=== PATIENT | female | born 1970 | race Caucasian/White ===

== ENCOUNTER 2019-07-04 10:11 | Day surgery (SDC) | payer BC ==
[2019-07-01 13:12] VITALS: BMI 20.3
[~2019-07-04 10:11] MED LIST: Ondansetron PF 4 MG/2 ML Vial ONE; PROPOFOL 200 MG/20 ML VIAL ONE
[2019-07-04] MEDS ORDERED: Sodium Chloride 0.9% 100 ML ONE (10:55)
[2019-07-04] MEDS ORDERED: Ketorolac Tromethamine 30 MG/ML VIAL ONE (10:55)
[2019-07-04] MEDS ORDERED: cefOXitin 2 GM VIAL ONE (10:55)
[2019-07-04 10:59] LABS: #Lymphocytes 2.1 thou/uL (1.20-3.40); #Monocytes 0.6 thou/uL (0.11-0.59); #Neutrophils 3.5 thou/uL (1.40-6.50); %Basophils 0.3 % (0.0-1.0); %Eosinophils 0.4 % (0.0-10.0); %Lymphocytes 34.2 % (21.0-51.0); %Monocytes 9.1 % (0.0-10.0); %Neutrophils 56.1 % (42.0-75.0); Hemoglobin 14.8 g/dL (12.0-16.0); Mean Corpuscular HGB CONC 32.9 g/dL (32.0-36.0); Mean Corpuscular Hemoglobin 31.2 pg (27.0-31.0); Mean Corpuscular Volume 94.9 fL (78.0-98.0); Mean Platelet Volume 7.4 fL (7.4-10.4); Platelet Count 226 thou/uL (130-400); RBC Distribution Width 11.4 % (11.5-14.5); Red Blood Cell (RBC) Count 4.74 mill/uL (4.20-5.40); White Blood Cell (WBC) Count 6.3 thou/uL (4.8-10.8)
[2019-07-04 11:27] LABS: Anion Gap 14 mmol/L (10-20); BUN (Urea Nitrogen) 9 mg/dL (9.8-20.1); Calc. Creatinine Clearance 90 mL/min (70-130); Calcium 9.2 mg/dL (7.8-10.44); Carbon Dioxide 26 mmol/L (22-29); Chloride 102 mmol/L (98-107); Estimated GFR-MDRD 87; Glucose 103 mg/dL (70-105); Potassium 4.4 mmol/L (3.5-5.1); Sodium 138 mmol/L (136-145)
[2019-07-04] MEDS ORDERED: Fentanyl 100 MCG/2 ML VIAL ONE (12:00)
[2019-07-04] MEDS ORDERED: Lidocaine 1% w/Epinephrine 1:100K 20 ML VIAL ONE (12:07)
[2019-07-04] MEDS ORDERED: Bupivacaine 0.25% HCL 30 ML VIAL ONE (12:07)
[2019-07-04] MEDS ORDERED: HYDROcodone/Acetaminophen 5/325 mg Tablet ONE (13:47)
--- NOTE | 2019-07-04 16:40 | OP ---
DATE OF PROCEDURE: 07/04/2019 PREOPERATIVE DIAGNOSIS: Dominant perianal skin lesion at approximately the 8 o'clock radian, posterior anal fissure. POSTOPERATIVE DIAGNOSIS: Dominant perianal skin lesion at approximately the 8 o'clock radian, posterior anal fissure with additional findings of 3 other small perianal skin lesions. PROCEDURES PERFORMED: Excision of 4 perianal skin lesions, the largest of which was at the 8 o'clock radian with other lesions at the 10 o'clock radian, the 1 o'clock radian, and the 2:30 radian, left lateral internal sphincterotomy, posterior anal fissurectomy. ANESTHESIA: General with laryngeal mask airway. INDICATIONS: The patient is a 49-year-old female. She presents with severe anorectal pain. She has failed a course of conservative management with nitroglycerin. She is taken to the operating room at this time for surgical treatment. She is additionally noted to have a dominant skin lesion. There appears to be a pedunculated lesion at about the 8 o'clock to 9 o'clock radian and excision of this was recommended. DESCRIPTION OF OPERATION: Informed consent was obtained. The patient was taken to the operating room, where general anesthesia was obtained with the patient in supine position. She was then placed in dorsal lithotomy position. Perianal area was prepped with Betadine and draped in sterile fashion. Attention was turned first to the skin lesions. I was initially planning on excising a single lesion at about the 8 o'clock to 9 o'clock radian. Upon further examination, there were 3 other smaller lesions. Local anesthetic was infiltrated at each site. The lesion was excised and passed off the field to Pathology. Hemostasis was obtained with electrocautery and all smoke was aspirated with suctioning device. Attention was then turned to the sphincterotomy. The bivalve speculum was used to expose the left lateral internal sphincter. Additional local anesthetic was infiltrated. Cutaneous incision was created over this. The sphincter was dissected and divided with electrocautery. The defect was then closed with a running locking suture of 3-0 Vicryl. Attention was turned to the posterior fissure. There was a dominant sentinel pile associated with this. I excised the edges of the fissure as well as the sentinel pile. Hemostasis was again obtained with electrocautery. The freshened edges of the fissure were closed with running locking suture of 3-0 Vicryl. An additional [id number] suture of 3-0 Vicryl was placed near the apex due to continued oozing. An Avitene material was placed within the anal canal. Dry gauze and mesh pants placed externally. There were no complications. The patient tolerated the procedure well, was taken to the recovery room in stable condition. Job ID: [id number]
== END 2019-07-04 15:45 | disposition home or self-care (01) ==
LOC: SDC 10:11
PROVIDERS: ATTEND Specialist
PROC: 0D8R0ZZ Division of Anal Sphincter, Open Approach (ICD-10-PCS; principal; 2019-07-04)
DX: K60.2 Anal fissure, unspecified (principal); A63.0 Anogenital (venereal) warts; E11.9 Type 2 diabetes mellitus without complications; F41.9 Anxiety disorder, unspecified; F17.210 Nicotine dependence, cigarettes, uncomplicated; Z79.4 Long term (current) use of insulin; Z79.899 Other long term (current) drug therapy; Z88.0 Allergy status to penicillin
CPT/HCPCS: 36415; 80048; 85025; 88305; J0131; J0694; J1885; J2405; J2704; J3010; J3490; S0020

== ENCOUNTER 2021-05-07 07:50 | Outpatient (CLI) | payer BC | END 2021-05-07 07:51 | disposition home or self-care (01) | LOC: BICCT 07:50 | PROVIDERS: ATTEND Physician Assistant Medical | DX: R59.0 Localized enlarged lymph nodes (principal); R05 Cough; R63.4 Abnormal weight loss; Z85.07 Personal history of malignant neoplasm of pancreas; R53.83 Other fatigue | CPT/HCPCS: 71260; 74177 ==

== ENCOUNTER 2021-05-07 13:26 | Outpatient (CLI) | payer BC ==
[2021-05-07 14:24] LABS: Hemoglobin 13.1 g/dL (12.0-15.5); Mean Corpuscular HGB CONC 33.1 g/dL (32.0-36.0); Mean Corpuscular Hemoglobin 30.4 pg (27.0-33.0); Mean Corpuscular Volume 91.9 fl (81.6-98.3); Mean Platelet Volume 10.3 fl (7.4-10.4); Platelet Count 214 10x3/uL (150-450); RBC Distribution Width 11.9 % (11.5-14.5); Red Blood Cell (RBC) Count 4.31 10x6/uL (3.90-5.03); White Blood Cell (WBC) Count 7.8 10x3/uL (3.5-10.5)
[2021-05-07 14:37] LABS: Anion Gap 15 mmol/L (10-20); BUN (Urea Nitrogen) Less than 4 mg/dL (9.8-20.1); Calc. Creatinine Clearance 0 mL/min (70-130); Calcium 9.1 mg/dL (7.8-10.44); Carbon Dioxide 21 mmol/L (22-29); Chloride 105 mmol/L (98-107); Glucose 100 mg/dL (70-105); Potassium 4.5 mmol/L (3.5-5.1); Sodium 136 mmol/L (136-145)
[2021-05-08 11:50] LABS: SARS-CoV-2 PCR by NAA Not Detected (NotDetected)
== END 2021-05-07 13:27 | disposition home or self-care (01) ==
LOC: LABBT 13:26
PROVIDERS: ATTEND Thoracic Surgery (Cardiothoracic Vascular Surgery)
DX: Z01.812 Encounter for preprocedural laboratory examination (principal); R91.8 Other nonspecific abnormal finding of lung field; Z20.822 Contact with and (suspected) exposure to COVID-19; R59.0 Localized enlarged lymph nodes; R05 Cough; R63.4 Abnormal weight loss; Z85.07 Personal history of malignant neoplasm of pancreas; R53.83 Other fatigue
CPT/HCPCS: 71260; 74177; 80048; 85027; U0003; U0005

== ENCOUNTER 2021-05-09 05:43 | Day surgery (SDC) | payer BC ==
[2021-05-08 11:51] VITALS: BMI 21.6
[2021-05-09] MEDS ORDERED: Clindamycin/D5W 900 mg/50 ml Premix Bag ONE (06:04)
[2021-05-09] MEDS ORDERED: Bupivacaine PF 0.5% 30 ML VIAL ONE (06:25)
[2021-05-09] MEDS ORDERED: EPINEPHrine 1 MG/ML AMP ONE (06:25)
[2021-05-09] MEDS ORDERED: Fentanyl 100 MCG/2 ML VIAL ONE (07:27)
[2021-05-09] MEDS ORDERED: ePHEDrine 50 MG/ML VIAL ONE (07:34)
[2021-05-09] MEDS ORDERED: Ondansetron PF 4 MG/2 ML Vial ONE (07:34)
[2021-05-09] MEDS ORDERED: PROPOFOL 200 MG/20 ML VIAL ONE (07:34)
== END 2021-05-09 09:50 | disposition home or self-care (01) ==
LOC: SDC 05:43
PROVIDERS: ATTEND Thoracic Surgery (Cardiothoracic Vascular Surgery)
PROC: 07B20ZX Excision of Left Neck Lymphatic, Open Approach, Diagnostic (ICD-10-PCS; principal; 2021-05-09)
DX: C7A.1 Malignant poorly differentiated neuroendocrine tumors (principal); E11.9 Type 2 diabetes mellitus without complications; F17.210 Nicotine dependence, cigarettes, uncomplicated; Z79.4 Long term (current) use of insulin; Z79.899 Other long term (current) drug therapy; Z88.0 Allergy status to penicillin
CPT/HCPCS: 36416; 88307; 88331; 88333; 88341; 88342; J0171; J2405; J2704; J3010; J3490; S0020

== ENCOUNTER 2021-05-14 09:48 | Outpatient (CLI) | payer BC ==
[2021-05-14] MEDS ORDERED: Magnevist 469MG/ML 20 ML VIAL ONE (10:54)
== END 2021-05-14 09:49 | disposition home or self-care (01) ==
LOC: MRI 09:48
PROVIDERS: ATTEND Internal Medicine Hematology & Oncology
DX: C34.01 Malignant neoplasm of right main bronchus (principal); R11.10 Vomiting, unspecified
CPT/HCPCS: 70553

== ENCOUNTER 2021-05-17 08:13 | Outpatient (CLI) | payer BC | END 2021-05-17 08:14 | disposition home or self-care (01) | LOC: PET 08:13 | PROVIDERS: ATTEND Internal Medicine Hematology & Oncology | DX: C34.01 Malignant neoplasm of right main bronchus (principal); R91.8 Other nonspecific abnormal finding of lung field; R59.0 Localized enlarged lymph nodes | CPT/HCPCS: 78815; A9552 ==

== ENCOUNTER 2021-07-15 08:48 | Outpatient (CLI) | payer BC | END 2021-07-15 08:49 | disposition home or self-care (01) | LOC: CT 08:48 | PROVIDERS: ATTEND Internal Medicine Hematology & Oncology | DX: C34.01 Malignant neoplasm of right main bronchus (principal) | CPT/HCPCS: 71260; 74177 ==

== ENCOUNTER 2021-08-20 10:59 | Emergency (ER) | payer BC | END 2021-08-20 19:14 | disposition left against medical advice (07) | LOC: ERS 10:59 | DX: Z53.21 Procedure and treatment not carried out due to patient leaving prior to being seen by health care provider (principal) ==

== ENCOUNTER 2021-09-06 12:47 | Outpatient (CLI) | payer BC | END 2021-09-06 12:48 | disposition home or self-care (01) | LOC: PET 12:47 | PROVIDERS: ATTEND Internal Medicine Hematology & Oncology | DX: C34.01 Malignant neoplasm of right main bronchus (principal); C79.31 Secondary malignant neoplasm of brain | CPT/HCPCS: 70553; 78815; A9552 ==

== ENCOUNTER 2021-09-15 08:07 | Inpatient (IN) | payer BC ==
[2021-09-15] MEDS ORDERED: Ondansetron PF 4 MG/2 ML Vial ONE (08:22)
[2021-09-15 08:26] LABS: #Lymphocytes 1.8 thou/uL (1.20-3.40); %Basophils 0.4 % (0.0-1.0); %Lymphocytes 16.7 % (21.0-51.0); %Monocytes 9.3 % (0.0-10.0); %Neutrophils 73.6 % (42.0-75.0); Hemoglobin 14.5 g/dL (12.0-16.0); Mean Corpuscular HGB CONC 33.2 g/dL (32.0-36.0); Mean Corpuscular Hemoglobin 32.6 pg (27.0-31.0); Mean Corpuscular Volume 98.2 fL (78.0-98.0); Mean Platelet Volume 6.5 fL (7.4-10.4); Platelet Count 176 thou/uL (130-400); RBC Distribution Width 11.6 % (11.5-14.5); Red Blood Cell (RBC) Count 4.45 mill/uL (4.20-5.40); White Blood Cell (WBC) Count 10.9 thou/uL (4.8-10.8)
[2021-09-15 08:41] LABS: INR-International Normal Ratio 1.1; PTT 24.3 sec (22.9-36.1); Prothrombin Time 13.9 sec (12.0-14.7)
[2021-09-15] MEDS ORDERED: Iopamidol-370 76% 500 ML 1 ML ONE (09:11)
[2021-09-15 09:13] LABS: Bilirubin Negative (Negative); Blood, Urine Negative (Negative); Clarity Clear (Clear); Glucose, Urine (Dipstick) 50 mg/dL (Negative); Ketone, Urine Negative (Negative); Leukocyte Negative Leu/uL (Negative); Nitrite Negative (Negative); Protein, Urine (Dipstick) Negative (Neg-Trace); Specific Gravity, Urine 1.015 (1.002-1.036); Urobilinogen Normal mg/dL (Less than 2)
[2021-09-15 09:22] LABS: ALT (SGPT) 16 U/L (8-55); AST (SGOT) 27 U/L (5-34); Acetaminophen Less than 6.0 mcg/mL (10.0-30.0); Albumin 3.4 g/dL (3.5-5.0); Alcohol Less than 10 mg/dL (Less than 10); Alkaline Phosphatase 73 U/L (40-110); Anion Gap 15 mmol/L (10-20); BUN (Urea Nitrogen) 10 mg/dL (9.8-20.1); Bilirubin, Total 0.8 mg/dL (0.2-1.2); CK (CPK) 40 U/L (29-168); Calc. Creatinine Clearance 0 mL/min (70-130); Calcium 8.2 mg/dL (7.8-10.44); Carbon Dioxide 20 mmol/L (22-29); Chloride 105 mmol/L (98-107); Globulin 3.6 g/dL (2.4-3.5); Glucose 85 mg/dL (70-105); Lipase 19 U/L (8-78); Potassium 3.3 mmol/L (3.5-5.1); Salicylate Less than 8.0 mg/dL (15.0-30.0); Sodium 137 mmol/L (136-145)
[2021-09-15 09:22] LABS: Amphetamine Not Detected (NotDetected); Barbiturates Screen Not Detected (NotDetected); Benzodiazepine Screen Not Detected (NotDetected); Cocaine Metabolite Screen Not Detected (NotDetected); Methadone Not Detected (NotDetected); Methamphetamine Not Detected (NotDetected); Opiate Screen Not Detected (NotDetected); Oxycodone Screen Not Detected (NotDetected); Phencyclidine (PCP) Not Detected (NotDetected); THC/Cannabinoid Screen Not Detected (NotDetected); Tricyclic Screen Not Detected (NotDetected)
[2021-09-15 12:12] LABS: Lactic Acid 1.2 mmol/L (0.5-2.2)
[2021-09-15] MEDS ORDERED: Dextrose 50% Abboject 50 ML SYRINGE ONE ×2 (12:23→15:11)
[2021-09-15] MEDS: Dextrose 50% Abboject 50 ML SYRINGE SLOW IVP PRN ×2 (12:25→15:14)
[2021-09-15] MEDS ORDERED: metroNIDAZOLE 500 MG in Premix Bag 1 BAG IVPB SCH (12:45)
[2021-09-15] MEDS ORDERED: Acetaminophen 325 MG TAB PO PRN (13:12)
[2021-09-15] MEDS ORDERED: Dextrose 5% in Water 1,000 ML IV PRN (13:16)
[2021-09-15 22:18] VITALS: BMI 20.3
[2021-09-15] MEDS: Dextrose 10% in Water 1,000 ML IV SCH (22:50)
[2021-09-15] MEDS: metroNIDAZOLE 500 MG in Premix Bag 1 BAG IVPB SCH ×2 (22:51→22:54)
[2021-09-16] MEDS: Dextrose 10% in Water 1,000 ML IV SCH (00:33)
[2021-09-16 05:35] LABS: #Lymphocytes 1.4 thou/uL (1.20-3.40); #Monocytes 0.3 thou/uL (0.11-0.59); #Neutrophils 3.2 thou/uL (1.40-6.50); %Basophils 0.3 % (0.0-1.0); %Eosinophils 0.2 % (0.0-10.0); %Lymphocytes 28.7 % (21.0-51.0); %Monocytes 6.7 % (0.0-10.0); %Neutrophils 64.1 % (42.0-75.0); Hemoglobin 11.5 g/dL (12.0-16.0); Mean Corpuscular HGB CONC 33.8 g/dL (32.0-36.0); Mean Corpuscular Volume 97.5 fL (78.0-98.0); Mean Platelet Volume 6.1 fL (7.4-10.4); Platelet Count 160 thou/uL (130-400); RBC Distribution Width 11.7 % (11.5-14.5); Red Blood Cell (RBC) Count 3.49 mill/uL (4.20-5.40); White Blood Cell (WBC) Count 4.9 thou/uL (4.8-10.8)
[2021-09-16] MEDS: metroNIDAZOLE 500 MG in Premix Bag 1 BAG IVPB SCH ×3 (05:49→23:01)
[2021-09-16 05:58] LABS: Anion Gap 12 mmol/L (10-20); BUN (Urea Nitrogen) 6 mg/dL (9.8-20.1); Calc. Creatinine Clearance 103 mL/min (70-130); Carbon Dioxide 26 mmol/L (22-29); Chloride 102 mmol/L (98-107); Glucose 149 mg/dL (70-105); Potassium 3.2 mmol/L (3.5-5.1); Sodium 137 mmol/L (136-145)
[2021-09-16] MEDS ORDERED: Potassium Chloride 20 MEQ TAB PO SCH (07:45)
[2021-09-16] MEDS: Citalopram 20 MG TAB PO SCH (09:06)
[2021-09-16] MEDS: Enoxaparin Sodium 40 MG/0.4 ML SYRINGE SC SCH (09:06)
[2021-09-16] MEDS: Polyethylene Glycol 3350 17 GM Packet PO SCH (09:07)
[2021-09-16 12:30] LABS: SARS-CoV-2 PCR by NAA DETECTED (NotDetected)
[2021-09-16] MEDS ORDERED: Fleet Enema 133 ML BOT PR SCH (13:15)
[2021-09-16] MEDS: HumaLOG 300 UNITS/3 ML VIAL SC PRN (15:12)
[2021-09-17] MEDS: metroNIDAZOLE 500 MG in Premix Bag 1 BAG IVPB SCH ×2 (05:35→14:46)
[2021-09-17] MEDS ORDERED: Dexamethasone 4 MG TAB PO SCH (08:00)
[2021-09-17] MEDS: Polyethylene Glycol 3350 17 GM Packet PO SCH (08:58)
[2021-09-17] MEDS: Enoxaparin Sodium 40 MG/0.4 ML SYRINGE SC SCH (08:58)
[2021-09-17] MEDS: Citalopram 20 MG TAB PO SCH (08:58)
[2021-09-17] MEDS: HumaLOG 300 UNITS/3 ML VIAL SC PRN ×2 (12:05→16:43)
[2021-09-17 16:57] VITALS: BP 94/65; TEMP 97.8
== END 2021-09-17 17:20 | disposition home or self-care (01) | DRG 388 ==
LOC: ERS 08:07 → ERHOLD 11:07 → 2NO 17:09 → T4-A 09-16 16:46
PROVIDERS: ADMIT Internal Medicine; ATTEND Internal Medicine
DX: K56.41 Fecal impaction (principal); U07.1 COVID-19; C85.90 Non-Hodgkin lymphoma, unspecified, unspecified site; C79.31 Secondary malignant neoplasm of brain; C34.90 Malignant neoplasm of unspecified part of unspecified bronchus or lung; K52.9 Noninfective gastroenteritis and colitis, unspecified; E11.649 Type 2 diabetes mellitus with hypoglycemia without coma; R33.9 Retention of urine, unspecified; T38.3X5A Adverse effect of insulin and oral hypoglycemic [antidiabetic] drugs, initial encounter; Z88.0 Allergy status to penicillin; Z85.07 Personal history of malignant neoplasm of pancreas; Z79.4 Long term (current) use of insulin; Z79.84 Long term (current) use of oral hypoglycemic drugs; Z79.51 Long term (current) use of inhaled steroids; Z79.899 Other long term (current) drug therapy; Z87.891 Personal history of nicotine dependence; Z90.710 Acquired absence of both cervix and uterus
CPT/HCPCS: 36415; 36416; 70450; 71045; 74177; 77336; 77412; 80048; 80053; 80306; 80307; 81003; 82550; 83605; 83690; 84443; 84484; 85025; 85610; 85730; 87040; 93005; 94760; J1650; J1815; J1956; J2405; J8540; Q9967; U0003; U0005